=== PATIENT | female | born 1985 | race Two or more races ===

== ENCOUNTER 2021-11-16 11:35 | Emergency (ER) | payer MEDICAID ==
[~2021-11-16] VITALS: Ht 175.3 cm; Wt 91.0 kg
[2021-11-16 12:32] VITALS: BP 124/83
[2021-11-16 13:29] LABS: Hemoglobin 12.1 g/dL (12.2-16.2); Lymphocytes # (auto) 1.7 10 ^3/uL (0.4-5.4); Neutrophils # (auto) 4.9 10 ^3/uL (1.6-8.6); Nucleated Red Blood Cells % 0.1 %
[2021-11-16 13:32] LABS: Basophils # (auto) 0 10 ^3/uL (0-0.2); Basophils % (auto) 0.5 % (0.0-2.0); Eosinophils # (auto) 0 10 ^3/uL (0-0.8); Eosinophils % (auto) 0.6 % (0.0-7.0); Hematocrit 37.4 % (36.0-46.0); Lymphocytes % (auto) 23.7 % (10.0-50.0); Mean Corpuscular Hemoglobin 23.1 pg (28.0-32.0); Mean Corpuscular Hgb Conc. 32.2 g/dL (32.0-36.0); Mean Corpuscular Volume 71.6 fL (80.0-100.0); Monocytes # (auto) 0.7 10 ^3/uL (0-1.3); Neutrophils % (auto) 66.2 % (37.0-80.0); Red Blood Cells 5.23 10^6/uL (4.0-5.20); Red Cell Distribution Width 15.8 % (11.8-14.3); White Blood Cell 7.4 10^3/uL (4.4-10.8)
[2021-11-16 13:33] LABS: Albumin 3.3 g/dL (3.4-5.0); Calcium 8.8 mg/dL (8.5-10.1); Potassium 3.7 mmol/L (3.5-5.1)
[2021-11-16 13:36] LABS: Bilirubin, Total 0.6 mg/dL (0.2-1.0); Total Protein 8.2 g/dL (6.4-8.2)
== END 2021-11-16 18:50 | disposition left against medical advice (07) ==
LOC: ER 11:43
DX: F11.23 Opioid dependence with withdrawal (principal); Z53.21 Procedure and treatment not carried out due to patient leaving prior to being seen by health care provider
CPT/HCPCS: 36415; 80053; 85025